=== PATIENT | female | born 1980 | race Caucasian/White ===

== ENCOUNTER 2021-11-01 11:12 | Emergency (ER) | payer OTHER, SELFPAY ==
[2021-11-01 11:23] VITALS: BP 132/83; PULSE 70; RESP 16; TEMP 36.4; O2SAT 99
--- NOTE | 2021-11-01 11:33 | ED.DIZZY ---
HPI - Dizziness General Chief Complaint: Dizziness Stated Complaint: dizziness Time Seen by Provider: 11/01/21 11:50 Mode of arrival: ambulatory Limitations: no limitations History of Present Illness HPI Narrative: 41-year-old female presents concern for room spinning dizziness. She reports symptoms started 2 days ago. Reports when she turns her head to the left she has severe sense of the room spinning with nausea. Reports she has tried fexofenadine and meclizine with little relief. Reports she has tried vertigo maneuvers with little relief. Reports she received mild relief but when she did the maneuver again symptoms worsen. She denies thunderclap headache, weakness in any extremity, vision changes or slurred speech. She denies earache, nasal congestion, rhinorrhea. MD elicited complaint: dizziness Pertinent past history: BPPV Related Data Home Medications Medication Instructions Recorded Confirmed Otc Allergy Med. 11/01/21 Allergies Allergy/AdvReac Type Severity Reaction Status Date / Time No Known Allergies Allergy Unverified 08/17/18 10:35 Review of Systems Review of Systems: CONSTITUTIONAL: Denies malaise, chills, sweats, or fever. EYES: Denies visual changes ENT: Denies rhinorrhea, congestion, sinus pain, otalgia or sore throat. CARDIOVASCULAR: Denies chest pain, palpitations, or edema. GI: Reports nausea RESPIRATORY: Denies cough or dyspnea. NEUROLOGIC: Denies numbness, weakness, or headache. Reports room spinning type dizziness All systems reviewed & are unremarkable except as noted in HPI and below PMFSH Comments At time of signature, agree with nursing past medical, surgical, social and family history. There is no relevant family history pertinent to the presenting complaint Exam Narrative: GENERAL: Well-appearing, well-nourished, and in no acute distress. HEAD: Normocephalic, atraumatic. EYES: PERRLA, sclera clear, and EOMI. No nystagmus. ENT: Nares clear, turbinates pink, no rhinorrhea or epistaxis. Mucous membranes moist. TM pearly de león with sharp light reflex bilaterally; no tragal tenderness. Oropharynx without erythema or lesions. Tonsils not enlarged and without exudate. NECK: Supple CHEST: No respiratory distress. Clear to auscultation. No bony deformities, no asymmetry. Speaks in full sentences. HEART: Regular rate and rhythm. No murmur heard. Normal peripheral pulses. EXTREMITIES: Grossly normal range of motion. No edema. Normal strength and sensation. SKIN: Warm, dry, no visible rash. NEURO: Alert and oriented x3. No focal deficits. Cranial nerves II through XII grossly intact. PSYCH: Normal mood and affect Wali-Hallpike test not performed, patient could not tolerate Course Course Emergency Course: Patient is aware of diagnosis, understands and agrees to treatment plan. Anticipatory guidance given. Patient agrees to follow-up as directed and is aware of reasons to seek care at the emergency department. Portions of this record may have been created with voice recognition software Level of Care: Express Care Visit Vital Signs Vital signs: Vital Signs Temperature 97.6 F 11/01/21 11:23 Pulse Rate 70 11/01/21 11:23 Respiratory Rate 16 11/01/21 11:23 Blood Pressure 132/83 11/01/21 11:23 Pulse Oximetry 99 11/01/21 11:23 Temperature 97.6 F 11/01/21 11:23 Pulse Rate 70 11/01/21 11:23 Respiratory Rate 16 11/01/21 11:23 Blood Pressure 132/83 11/01/21 11:23 Pulse Oximetry 99 11/01/21 11:23 Reviewed. MDM - Dizziness MDM Narrative Medical decision making narrative: Patients vertigo is felt to be likely peripheral in origin. there is no diplopia, dysarthria, or dysphagia. Patients gait is stable and there are no focal neurological deficits on exam. Risk for central causes has been reviewed. Patient felt likely reasonable for continued outpatient management and risks are felt to outweigh benefits for further imaging studies at this time Differential Aimee
[2021-11-01 11:35] VITALS: BP 132/83; PULSE 70; RESP 16; TEMP 36.4; O2SAT 99
[2021-11-01] MEDS: ONDANSETRON HCL ODT 4 MG TABLET PO (11:59)
== END 2021-11-01 12:09 | disposition home or self-care (01) ==
PROVIDERS: Emergency Provider Nurse Practitioner
DX: H81.12 Benign paroxysmal vertigo, left ear (principal)
CPT/HCPCS: 99213; A9270; G0463

== ENCOUNTER 2022-07-04 18:34 | Emergency (ER) | payer OTHER, SELFPAY ==
--- NOTE | ~2022-07-04 | XR_ITS ---
EXAM: XR foot RT min 3V DATE: 07/04/2022 18:59 HISTORY: work injury . COMPARISON: None available. FINDINGS: Normal mineralization. No fracture or dislocation. No lytic or blastic lesion. Joint space s are maintained. No erosion or periosteal change. Forefoot soft tissue swelling. IMPRESSION: No acute osseous finding in the the right foot. Reviewed, dictated and finalized at location K.
[2022-07-04 18:40] VITALS: BP 134/80; PULSE 70; RESP 16; TEMP 36.7; O2SAT 98
--- NOTE | 2022-07-04 18:47 | ED.LOWEXIN ---
HPI - Extremity Injury (Lower) General Chief Complaint: Extremity Injury, Lower Stated Complaint: right foot injury Time Seen by Provider: 07/04/22 18:47 History of Present Illness HPI Narrative: Patient is a 42-year-old female presenting with right foot pain. Patient was at work when a loading arthur ran over her right foot. Patient states that she wears steel toed shoes to work which provided protection. States that she immediately had pain and swelling over the top of her right foot. States she was able to bear weight following the injury. She denies numbness. She denies further injury or complaint. Related Data Home Medications Medication Instructions Recorded Confirmed Otc Allergy Med. 11/01/21 loratadine 10 mg tablet (Allergy 10 mg PO DAILY 11/05/21 11/05/21 Relief (loratadine)) omeprazole 20 mg capsule,delayed 20 mg PO BID 11/05/21 11/05/21 release Allergies Allergy/AdvReac Type Severity Reaction Status Date / Time No Known Allergies Allergy Unverified 08/17/18 10:35 Review of Systems Review of Systems: All systems reviewed & are unremarkable except as noted in HPI and below PMFSH Family History Family History Father Alcoholism Depression Mother Alcoholism Grandparent Cancer Heart disease Grandparent Cancer Social History Social History Smoking status: Current every day smoker Tobacco type: cigarettes Alcohol intake: current Substance use: never Substance use type: does not use Exam Narrative: GENERAL: Well-appearing, well-nourished, and in no acute distress. HEAD: Normocephalic, atraumatic. EYES: PERRLA and EOMI. ENT: Nares clear, no rhinorrhea or epistaxis. Mucous membranes moist. NECK: Supple. CHEST: Clear to auscultation. No respiratory distress. HEART: Regular rate and rhythm. No murmur heard. Normal peripheral pulses. ABDOMEN: Soft, nontender, nondistended, normal active bowel sounds. EXTREMITIES: +hematoma and ecchymoses over distal aspect of dorsum of R foot; cap refill <2s; 2+ DP/PT pulses bilaterally SKIN: Warm, dry, no rash. NEURO: No focal deficits. Alert and oriented x3. PSYCH: Normal mood and affect. Course Vital Signs Vital signs: Vital Signs Temperature 98.1 F 07/04/22 18:40 Pulse Rate 70 07/04/22 18:40 Respiratory Rate 16 07/04/22 18:40 Blood Pressure 134/80 07/04/22 18:40 Pulse Oximetry 98 07/04/22 18:40 Temperature 98.1 F 07/04/22 18:40 Pulse Rate 70 07/04/22 18:40 Respiratory Rate 16 07/04/22 18:40 Blood Pressure 134/80 07/04/22 18:40 Pulse Oximetry 98 07/04/22 18:40 MDM - Extremity Injury (Lower) MDM Narrative Medical decision making narrative: Patient is a 42-year-old female with history as above presenting with right foot pain after an injury at work. Vitals within normal limits. Patient is well-appearing and in no acute distress. Exam is remarkable for the above. X-ray shows no acute osseous abnormalities. Discussed appropriate supportive care and recommended following up with a program eligibility specialist as needed. Appropriate return precautions given. Patient voiced understanding is agreeable with plan. Discharged in stable condition. Critical Care Time Critical Care Time Critical Care Time: No Discharge Plan Discharge Clinical Impression: Foot pain, right Patient Disposition: Home, Self-Care Condition: Stable Instructions: Antibiotic Form, Foot Contusion (ED) Additional Instructions: Please follow-up with your foot doctor as needed. Please be sure to rest the foot, apply ice, keep it elevated, and use Tylenol and ibuprofen for pain control. Prescriptions: No Action Otc Allergy Med. diazepam [Valium] 5 mg tablet 5 mg PO TID PRN (Reason: dizziness or vertigo) Qty: 10 0RF ondansetron 4 mg tablet,disintegrating 4 mg PO Q8H PRN (Reason: n
--- NOTE | 2022-07-04 19:26 | PC.NURSE ---
Assumed care of pt at this time. Pt and family updated on POC
== END 2022-07-04 19:51 | disposition home or self-care (01) ==
PROVIDERS: Emergency Provider Emergency Medicine; PCP Nurse Practitioner
DX: S99.921A Unspecified injury of right foot, initial encounter (principal); W24.0XXA Contact with lifting devices, not elsewhere classified, initial encounter
CPT/HCPCS: 73630; 99283